=== PATIENT | female | born 1985 | race African-American/Black ===

== ENCOUNTER 2018-02-12 18:52 | Emergency (ER) | payer SELFPAY ==
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
[2018-02-12] MEDS ORDERED: IBUPROFEN 400 MG TAB ONE (20:21)
== END 2018-02-12 20:39 | disposition home or self-care (01) ==
LOC: ER 18:52
DX: S13.4XXA Sprain of ligaments of cervical spine, initial encounter (principal); V49.40XA Driver injured in collision with unspecified motor vehicles in traffic accident, initial encounter; F41.9 Anxiety disorder, unspecified
CPT/HCPCS: 70450; 72125; 99284